=== PATIENT | male | born 1975 | race Caucasian/White ===

== ENCOUNTER 2023-11-11 12:32 | Emergency (ER) | payer OTHER ==
[~2023-11-11] VITALS: Ht 177.8 cm; Wt 90.7 kg
[2023-11-11 12:37] VITALS: BP 162/107; PULSE 76; RESP 18; TEMP 97.5; O2SAT 95
== END 2023-11-11 13:13 | disposition home or self-care (01) ==
LOC: MED 12:32
DX: I10 Essential (primary) hypertension (principal); E11.9 Type 2 diabetes mellitus without complications; Z91.018 Allergy to other foods
CPT/HCPCS: 99283